=== PATIENT | female | born 1975 | race Caucasian/White ===

== ENCOUNTER → 2018-06-07 | Outpatient (CLI) | payer OTHER | LOC: BMCIMAGING 12:46 | PROVIDERS: ATTEND Obstetrics & Gynecology | DX: Z12.31 Encounter for screening mammogram for malignant neoplasm of breast (principal); Z80.3 Family history of malignant neoplasm of breast ==

== ENCOUNTER 2018-07-24 12:30 | Emergency (ER) | payer OTHER ==
[2018-07-24 13:36] LABS: PLATELET COUNT 187 10^3/uL (150-400)
[2018-07-24 14:51] VITALS: BP 125/75
[2018-07-24] MEDS ORDERED: NS 1,000 ML IV ONE (15:28)
[2018-07-24] MEDS ORDERED: fentaNYL 100 MCG/2 ML INJ IVP ONE (15:28)
[2018-07-24] MEDS ORDERED: IOPAMIDOL (ISOVUE 370) 100 ML BTL IV ONE (15:30)
[2018-07-24] MEDS ORDERED: KETOROLAC 15 MG/1 ML SDV IVP ONE (16:12)
--- NOTE | 2018-07-24 16:13 | EDPHY ---
H & P Stated Complaint: Abdominal Pain x 1 Day Time Seen by Provider: 07/24/18 13:21 HPI/ROS: CHIEF COMPLAINT: Abdominal pain HISTORY OF PRESENT ILLNESS: A 43-year-old female presents emergency department reporting lower right abdominal pain since this morning. Pain is worse with drinking coffee or drinking water. No nausea or vomiting. No fevers or chills. She had some diarrhea this morning. No urinary complaints. No prior history of similar pain. Reports short chill this morning. Patient has an IUD. She reports some spotting at the end of June which is not unusual for her. REVIEW OF SYSTEMS: A comprehensive 10 system review of systems was reviewed and is otherwise negative aside from elements mentioned in the history of present illness and medical decision making. PAST MEDICAL HISTORY: Patient denies. IUD in place. SOCIAL HISTORY: Nonsmoker. No alcohol use. VITAL SIGNS Reviewed by me. Afebrile. GENERAL: Well-developed, well-nourished, resting comfortably in no respiratory distress. HEENT: Atraumatic. Eyes: No icterus, no injection. Mouth: moist mucous membranes. No erythema or lesions. Neck: supple with no adenopathy. LUNGS: Clear to auscultation bilaterally, no wheezes, rhonchi or rales. CARDIAC: Regular rate and rhythm, no rubs, murmurs or gallops. ABDOMEN: Soft, tenderness in the right lower quadrant, near McBurney's point. Also has some tenderness in the left upper quadrant. No guarding or rebound. BACK: Very mild left CVA tenderness. EXTREMITIES: No trauma. No edema. Range of motion is normal throughout. NEURO: Alert and oriented, grossly nonfocal. SKIN: Warm and dry, no rash. PSYCHIATRIC: Normal mentation, no agitation. - Personal History LMP (Females 10-55): IUD In Place Current Tetanus Diphtheria and Acellular Pertussis (TDAP): Yes Tetanus Vaccine Date: 2012 - Medical/Surgical History Hx Asthma: No Hx Chronic Respiratory Disease: No Hx Diabetes: No Hx Cardiac Disease: No Hx Renal Disease: No Hx Cirrhosis: No Hx Alcoholism: No Hx HIV/AIDS: No Hx Splenectomy or Spleen Trauma: No Other PMH: wisdom teeth, septoplasty - Social History Smoking Status: Former smoker Constitutional: Initial Vital Signs Temperature (C) 36.8 C 07/24/18 12:31 Heart Rate 70 07/24/18 12:31 Respiratory Rate 18 07/24/18 12:31 Blood Pressure 142/68 H 07/24/18 12:31 O2 Sat (%) 99 07/24/18 12:31 O2 Delivery Mode Room Air Allergies/Adverse Reactions: amoxicillin trihydrate [From Augmentin] Allergy (Verified 07/24/18 12:33) Penicillins Allergy (Verified 07/24/18 12:33) potassium clavulanate [From Augmentin] Allergy (Verified 07/24/18 12:33) Home Medications: Medication Instructions Recorded NK [No Known Home Meds] 07/24/18 Medical Decision Making - Diagnostics Imaging Results: Imaging Impressions Abdomen Ultrasound 07/24/18 13:45 Impression: 1. Nonvisualization of the appendix. Results called to Dr. Bolton at 3:00 PM. Pelvic/Renal Ultrasound 07/24/18 13:45 Impression: Mildly complex 2.6 cm left ovarian cysts, and benign-appearing 2.6 cm left paraovarian cyst. IUD in place. Results called to Dr. Bolton at 3:[address] 07/24/18 15:28 Impression: 1. Normal CT appearance of the appendix, atypical location. 2. Left ovarian cyst and paraovarian cyst. Trace peritoneal free fluid. Results called to Dr. Bolton at 4:00 p.m. Imaging: Discussed imaging studies w/ bench tool maker Radiologist ED Course/Re-evaluation: Normal white count. Normal chemistries. Not . Ultrasound demonstrates a complex cyst in the left ovary with debris. Small amount of fluid in the left pelvis. On re-examination the patient continues to have right lower quadrant discomfort. CT scan ordered. CT scan demonstrates a normal appendix, right-sided fluid in the cul-de-sac. Patient received Toradol for pain as well as anti-inflammatory effects. She was advised to be sure that the cyst was reexamined in 4-6 weeks. Reassured that there is no signs of appendicitis. Please see discharge instructions Differential Diagnosis: The differential diagnosis for the patient's abdominal pain was considered including but not limited to ovarian cyst, pelvic inflammatory disease, ovarian torsion, urinary tract infection, related complications, and appendicitis. - Data Points Laboratory Results: Laboratory Results 07/24/18 13:10 07/24/18 13:10 07/24/18 07/24/18 07/24/18 13:45 13:10 13:10 WBC RBC Hgb Hct MCV MCH MCHC RDW Plt Count MPV Neut % (Auto) Lymph % (Auto) [place] % (Auto) Eos % (Auto) Baso % (Auto) Nucleat RBC Rel Count Absolute Neuts (auto) Absolute Lymphs (auto) Absolute Monos (auto) Absolute Eos (auto) Absolute Basos (auto) Absolute Nucleated RBC Immature Gran % Immature Gran # Sodium Potassium Chloride Carbon Dioxide Anion Gap BUN Creatinine Estimated GFR Glucose Calcium Troponin I TNP Beta HCG, Qual NEGATIVE Urine Color YELLOW Urine Appearance CLEAR Urine pH 6.0 (5.0-7.5) Ur Specific [place] 1.011 (1.002-1.030) Urine Protein NEGATIVE (NEGATIVE) Urine Ketones NEGATIVE (NEGATIVE) Urine Blood 1+ H (NEGATIVE) Urine Nitrate NEGATIVE (NEGATIVE) Urine Bilirubin NEGATIVE (NEGATIVE) Urine Urobilinogen NEGATIVE EU EU (0.2-1.0) Ur Leukocyte Esterase NEGATIVE (NEGATIVE) Urine RBC 1-3 /hpf /hpf (0-3) Urine WBC 1-3 /hpf /hpf (0-3) Ur Epithelial Cells TRACE /lpf /lpf (NONE-1+) Urine Bacteria TRACE /hpf H /hpf (NONE SEEN) Urine Mucus TRACE /lpf /lpf (NONE-1+) Urine Glucose NEGATIVE (NEGATIVE) 07/24/18 07/24/18 13:10 13:10 WBC 7.53 10^3/uL 10^3/uL (3.80-9.50) RBC 4.65 10^6/uL 10^6/uL (4.18-5.33) Hgb 14.7 g/dL g/dL (12.6-16.3) Hct 43.4 % % (38.0-47.0) MCV 93.3 fL fL (81.5-99.8) MCH 31.6 pg pg (27.9-34.1) MCHC 33.9 g/dL g/dL (32.4-36.7) RDW 12.5 % % (11.5-15.2) Plt Count 187 10^3/uL 10^3/uL (150-400) MPV 11.5 fL fL (8.7-11.7) Neut % (Auto) 59.4 % % (39.3-74.2) Lymph % (Auto) 32.5 % % (15.0-45.0) [place] % (Auto) 6.6 % % (4.5-13.0) Eos % (Auto) 1.3 % % (0.6-7.6) Baso % (Auto) 0.1 % L % (0.3-1.7) Nucleat RBC Rel Count 0.0 % % (0.0-0.2) Absolute Neuts (auto) 4.46 10^3/uL 10^3/uL (1.70-6.50) Absolute Lymphs (auto) 2.45 10^3/uL 10^3/uL (1.00-3.00) Absolute Monos (auto) 0.50 10^3/uL 10^3/uL (0.30-0.80) Absolute Eos (auto) 0.10 10^3/uL 10^3/uL (0.03-0.40) Absolute Basos (auto) 0.01 10^3/uL L 10^3/uL (0.02-0.10) Absolute Nucleated RBC 0.00 10^3/uL 10^3/uL (0-0.01) Immature Gran % 0.1 % % (0.0-1.1) Immature Gran # 0.01 10^3/uL 10^3/uL (0.00-0.10) Sodium 137 mEq/L mEq/L (135-145) Potassium 4.3 mEq/L mEq/L (3.5-5.2) Chloride 109 mEq/L mEq/L (97-110) Carbon Dioxide 22 mEq/l mEq/l (22-31) Anion Gap 6 mEq/L mEq/L (6-14) BUN 16 mg/dL mg/dL (7-23) Creatinine 0.8 mg/dL mg/dL (0.6-1.0) Estimated GFR > 60 Glucose 87 mg/dL mg/dL (70-100) Calcium 9.6 mg/dL mg/dL (8.5-10.4) Troponin I Beta HCG, Qual Urine Color Urine Appearance Urine pH Ur Specific [place] Urine Protein Urine Ketones Urine Blood Urine Nitrate Urine Bilirubin Urine Urobilinogen Ur Leukocyte Esterase Urine RBC Urine WBC Ur Epithelial Cells Urine Bacteria Urine Mucus Urine Glucose Medications Given: Discontinued Medications Fentanyl (Sublimaze) 50 mcg IVP EDNOW ONE Stop: 07/24/18 15:29 Last Admin: 07/24/18 15:39 Dose: 50 mcg Sodium Chloride (Ns) 1,000 mls @ 0 mls/hr IV ONCE ONE; Wide Open PRN Reason: Protocol Stop: 07/24/18 15:29 Last Admin: 07/24/18 15:38 Dose: 1,000 mls Ketorolac Tromethamine (Toradol) 15 mg IVP EDNOW ONE Stop: 07/24/18 16:13 Last Admin: 07/24/18 16:20 Dose: 15 mg Departure - Departure Disposition: Home, Routine, Self-Care Clinical Impression: Abdominal pain Qualifiers: Abdominal location: right lower quadrant Qualified Code(s): R10.31 - Right lower quadrant pain Ovarian cyst Qualifiers: Laterality: left Qualified Code(s): N83.202 - Unspecified ovarian cyst, left side Condition: Good Instructions: Ovarian Cyst (ED) Additional Instructions: Your CT scan today shows a normal appendix. You do have a complex cyst in the left ovary which should be followed up. Please see your primary care physician or your OBGYN in 4-6 weeks for a repeat ultrasound. Please use ibuprofen 600 mg with food every 6-8 hours as needed for pain. For your abdominal pain, I suggested you start with a bland diet and advance as tolerated. This means start with clear liquids such as water, Gatorade, juice, flat non- caffeinated soda. If you tolerate clear liquids, then you may add bland foods such as bananas, rice, or toast. If you do not have any worsening of your symptoms, you may begin to resume a regular diet. Referrals: Mia Zapata [Primary Care Provider] - As per Instructions
== END 2018-07-24 16:31 | disposition home or self-care (01) ==
DX: N83.292 Other ovarian cyst, left side (principal); E86.9 Volume depletion, unspecified
CPT/HCPCS: 96374; J1885; J3010; Q9967